=== PATIENT | female | born 1985 | race Two or more races ===

== ENCOUNTER 2022-11-25 09:28 | Emergency (ER) | payer OTHER ==
[~2022-11-25] VITALS: Ht 165.1 cm; Wt 59.0 kg
[2022-11-25] MEDS ORDERED: IRON236 MG (09:42)
== END 2022-11-25 14:27 | disposition home or self-care (01) ==
LOC: ER 09:28
PROVIDERS: Emergency Medicine
DX: O20.8 Other hemorrhage in early pregnancy (principal); Z88.6 Allergy status to analgesic agent